=== PATIENT | male | born 1955 | race Caucasian/White ===

== ENCOUNTER 2016-12-31 18:41 | Emergency (ER) | payer SELFPAY ==
[~2016-12-31] VITALS: Ht 162.6 cm; Wt 68.0 kg
[2016-12-31] MEDS ORDERED: ACET-66 PO (18:50)
[2016-12-31 19:30] VITALS: BP 176/94
== END 2016-12-31 20:10 | disposition home or self-care (01) ==
LOC: EMS 18:44
DX: M54.5 Low back pain (principal)
CPT/HCPCS: 99283